=== PATIENT | male | born 1965 | race Caucasian/White ===

== ENCOUNTER → 2018-06-22 | Outpatient (CLI) | payer SELFPAY ==
[2018-06-22 18:29] LABS: ALBUMIN 4.6 g/dL (3.5-5.0); CALCIUM 9.7 mg/dL (8.4-10.2); POTASSIUM 4.1 mmol/L (3.6-5.0); TOTAL BILIRUBIN 0.6 mg/dL (0.2-1.3); TOTAL PROTEIN 7.8 g/dL (6.3-8.2)
== END ==
LOC: LAB 17:57
PROVIDERS: Nurse Practitioner Family
DX: E11.9 Type 2 diabetes mellitus without complications (principal); I10 Essential (primary) hypertension

== ENCOUNTER → 2019-07-11 | Outpatient (CLI) | payer BC ==
[2019-07-11 16:48] LABS: HEMOGLOBIN 14.4 g/dL (13.5-18.0); MEAN CELL VOLUME 90 fl (78-100); MEAN CORPUSCULAR HEMOGLOBIN 30 pg (27-31); MEAN CORPUSCULAR HGB CONC 34 g/dL (33-37); MEAN PLATELET VOLUME 11.1 fl (7.4-10.4); PLATELET COUNT 253 K/mm3 (130-400); RED CELL DISTRIBUTION WIDTH 13.1 % (11.5-14.5); WHITE BLOOD COUNT 6.1 K/mm3 (4.8-10.8)
[2019-07-11 16:52] LABS: POTASSIUM 4.5 mmol/L (3.5-5.1)
[2019-07-11 16:53] LABS: ALBUMIN 4.5 g/dL (3.5-5.0)
[2019-07-11 16:54] LABS: CALCIUM 10.1 mg/dL (8.3-10.5)
[2019-07-11 16:55] LABS: TOTAL PROTEIN 7.9 g/dL (6.4-8.3)
[2019-07-11 16:57] LABS: TOTAL BILIRUBIN 0.5 mg/dL (0.2-1.2)
[2019-07-11 17:30] LABS: LYMPHOCYTE 24 % (20-51); MONOCYTE 10 % (3-10); NEUTROPHILS 62 % (42-75)
== END ==
LOC: LAB 16:26
PROVIDERS: Physician Assistant
DX: Z12.5 Encounter for screening for malignant neoplasm of prostate (principal); E78.2 Mixed hyperlipidemia; E11.9 Type 2 diabetes mellitus without complications; I10 Essential (primary) hypertension; Z76.89 Persons encountering health services in other specified circumstances

== ENCOUNTER → 2019-10-10 | Outpatient (CLI) | payer BC | LOC: LAB 16:44 | DX: E11.9 Type 2 diabetes mellitus without complications (principal) ==

== ENCOUNTER → 2020-07-22 | Outpatient (CLI) | payer BC ==
[2020-07-22 17:40] LABS: ALBUMIN 4.5 g/dL (3.5-5.0); BASO # 0.04 (0.02-0.10); EOS # 0.19 (0.04-0.40); HEMATOCRIT 44.4 % (42.0-52.0); LYMPH# 1.98 (1.50-4.00); MEAN CELL VOLUME 90 fl (78-100); MEAN CORPUSCULAR HEMOGLOBIN 30 pg (27-31); MEAN CORPUSCULAR HGB CONC 34 g/dL (33-37); MEAN PLATELET VOLUME 10.8 fl (7.4-10.4); MONO # 0.64 (0.20-0.80); NEU # 3.49 (1.40-6.50); PLATELET COUNT 283 K/mm3 (130-400); POTASSIUM 4.4 mmol/L (3.5-5.1); RED BLOOD COUNT 4.93 M/mm3 (4.20-5.60); RED CELL DISTRIBUTION WIDTH 12.8 % (11.5-14.5); WHITE BLOOD COUNT 6.4 K/mm3 (4.8-10.8)
[2020-07-22 17:41] LABS: CALCIUM 9.9 mg/dL (8.3-10.5)
[2020-07-22 17:42] LABS: TOTAL PROTEIN 7.9 g/dL (6.4-8.3)
[2020-07-22 17:44] LABS: TOTAL BILIRUBIN 0.6 mg/dL (0.2-1.2)
== END ==
LOC: LAB 17:11
PROVIDERS: Physician Assistant
DX: Z00.00 Encounter for general adult medical examination without abnormal findings (principal); E11.9 Type 2 diabetes mellitus without complications

== ENCOUNTER → 2021-08-24 | Outpatient (CLI) | payer BC ==
[2021-08-24 10:36] LABS: BASO # 0.06 K/mm3 (0.02-0.10); EOS # 0.18 K/mm3 (0.04-0.40); EOS % 2.8 % (0.0-4.0); HEMATOCRIT 43.7 % (42.0-52.0); HEMOGLOBIN 14.6 g/dL (13.5-18.0); LYMPH# 1.81 K/mm3 (1.50-4.00); MEAN CELL VOLUME 91 fl (78-100); MEAN CORPUSCULAR HEMOGLOBIN 30 pg (27-31); MEAN CORPUSCULAR HGB CONC 33 g/dL (33-37); MEAN PLATELET VOLUME 10.8 fl (7.4-10.4); MONO # 0.54 K/mm3 (0.20-0.80); NEU # 3.81 K/mm3 (1.40-6.50); PLATELET COUNT 263 K/mm3 (130-400); RED BLOOD COUNT 4.81 M/mm3 (4.20-5.60); RED CELL DISTRIBUTION WIDTH 12.7 % (11.5-14.5); WHITE BLOOD COUNT 6.4 K/mm3 (4.8-10.8)
[2021-08-24 10:41] LABS: POTASSIUM 4.7 mmol/L (3.5-5.1)
[2021-08-24 10:42] LABS: ALBUMIN 4.4 g/dL (3.5-5.0)
[2021-08-24 10:43] LABS: CALCIUM 9.7 mg/dL (8.3-10.5)
[2021-08-24 10:44] LABS: TOTAL PROTEIN 7.5 g/dL (6.4-8.3)
[2021-08-24 10:46] LABS: TOTAL BILIRUBIN 0.5 mg/dL (0.2-1.2)
== END ==
LOC: LAB 10:08
PROVIDERS: Physician Assistant
DX: Z00.00 Encounter for general adult medical examination without abnormal findings (principal); I10 Essential (primary) hypertension; E11.9 Type 2 diabetes mellitus without complications; E78.2 Mixed hyperlipidemia

== ENCOUNTER 2021-09-09 19:48 | Emergency (ER) | payer BC ==
[~2021-09-09] VITALS: Ht 25.4 cm; Wt 127.3 kg
[2021-09-09] MEDS ORDERED: TYLENOL 8 HOUR650 M1 PO (20:11)
[2021-09-09] MEDS ORDERED: GLUCOPHAGE (20:11)
[2021-09-09] MEDS ORDERED: LISINOPRIL10 MG PO (20:11)
[2021-09-09] MEDS ORDERED: ASPIRIN 81M81 MG/TA2 PO (20:12)
[2021-09-09 21:24] VITALS: BP 165/99
== END 2021-09-09 21:31 | disposition home or self-care (01) ==
LOC: ED 19:48
DX: S62.617A Displaced fracture of proximal phalanx of left little finger, initial encounter for closed fracture (principal); E66.9 Obesity, unspecified; Z28.310 Unvaccinated for COVID-19; W18.39XA Other fall on same level, initial encounter

== ENCOUNTER → 2021-09-23 | Outpatient (CLI) | payer BC ==
[~2021-09-23] MED LIST: ASPIRIN 81M81 MG/TA2 PO; GLUCOPHAGE; LISINOPRIL10 MG PO; TYLENOL 8 HOUR650 M1 PO
== END ==
LOC: RAD 14:57
DX: S63.277A Dislocation of unspecified interphalangeal joint of left little finger, initial encounter (principal)

== ENCOUNTER → 2021-10-04 | Day surgery (SDC) | payer BC | LOC: MSO 07:32 | DX: Z12.11 Encounter for screening for malignant neoplasm of colon (principal); K63.5 Polyp of colon | CPT/HCPCS: 00811; J2704; J7120 ==

== ENCOUNTER → 2023-04-20 | Outpatient (REF) | payer BC | LOC: LAB 11:35 | DX: U07.1 COVID-19 (principal) ==

== ENCOUNTER → 2023-08-22 | Outpatient (CLI) | payer BC | LOC: LAB 15:20 | DX: E11.9 Type 2 diabetes mellitus without complications (principal) ==